=== PATIENT | female | born 1960 | race Caucasian/White ===

== ENCOUNTER 2018-07-11 18:59 | Emergency (ER) | payer OTHER ==
[~2018-07-11] VITALS: Ht 157.5 cm; Wt 95.3 kg
[~2018-07-11 18:59] MED LIST: ALEVE220 M1; CARAFATE1 G; CARDIZEM CD240 MG PO; CARTIA XT120 MG; CELEXA40 MG PO; CLARITIN5 MG; CLONAZEPAM0.125 MG/T; CLORAZEPATE DI7.5 MG PO; COREG CR10 MG; CRESTOR5 MG; DIAZEPAM10 MG; DIAZIDE; DILTIAZEM 24HR120 MG; FIORICET TABLET1 TAB; FLEXERIL10 MG PO; FLUTICASONE PROP1 GM; HALDOL DECA100 MG/M1 IM; INFANTS' G40 MG/0.6; INTESTINEX1 CA1; LAMICTAL25 MG; LASIX20 MG; MIRALAX12 EA; MOBIC15 MG; NEURONTIN800 MG; PEPTO-BISMOL262 M1; PHENERGAN25 MG; PREMARIN0.45 MG; REMERON30 MG PO; RISPERDAL0.25 MG; SEROQUEL200 MG; SOMA250 MG; SYMBICORT 16010.2 GM; SYNTHROID50 MCG; ULTRAM50 MG; VALIUM5 MG/M1; XOPENEX0.63 MG/3; ZANAFLEX4 M1; ZANTAC300 MG PO; [UNRECOGNIZED DRUG - OTHER] PO; [UNRECOGNIZED DRUG - SUPPLY]
== END 2018-07-12 01:52 | disposition home or self-care (01) ==
LOC: ER 18:59
DX: M54.5 Low back pain (principal)

== ENCOUNTER 2018-08-10 22:51 | Emergency (ER) | payer OTHER ==
[~2018-08-10] VITALS: Ht 157.5 cm; Wt 86.2 kg
[2018-08-10] MEDS ORDERED: BACLOFEN20 MG (23:21)
[2018-08-10] MEDS ORDERED: DICLOFENAC POTA50 MG (23:21)
[2018-08-10] MEDS ORDERED: ANTIVERT (23:21)
[2018-08-10] MEDS ORDERED: GRALISE600 MG (23:21)
[2018-08-10] MEDS ORDERED: ATIVAN2 MG (23:22)
[2018-08-10] MEDS ORDERED: [UNRECOGNIZED DRUG - OTHER] (23:22)
[2018-08-10] MEDS ORDERED: RESTORIL30 M1 (23:22)
[2018-08-10] MEDS ORDERED: GABAPENTIN800 MG (23:23)
[2018-08-10] MEDS ORDERED: CARDIZEM CD240 MG (23:23)
[2018-08-11] MEDS ORDERED: ORPHENADRINE C100 MG PO (05:01)
[2018-08-11] MEDS ORDERED: CELECOXIB100 MG PO (05:01)
== END 2018-08-11 05:16 | disposition home or self-care (01) ==
LOC: ER 22:51
DX: M94.0 Chondrocostal junction syndrome [Tietze] (principal); R07.89 Other chest pain

== ENCOUNTER 2018-10-09 19:02 | Emergency (ER) | payer OTHER ==
[~2018-10-09] VITALS: Ht 157.5 cm; Wt 72.6 kg
[~2018-10-09 19:02] MED LIST changes: +ANTIVERT; +ATIVAN2 MG; +BACLOFEN20 MG; +CARDIZEM CD240 MG; +CELECOXIB100 MG PO; +DICLOFENAC POTA50 MG; +GABAPENTIN800 MG; +GRALISE600 MG; +ORPHENADRINE C100 MG PO; +RESTORIL30 M1; +[UNRECOGNIZED DRUG - OTHER]
[2018-10-10] MEDS ORDERED: ULTRACET PO (01:12)
== END 2018-10-10 01:50 | disposition home or self-care (01) ==
LOC: ER 19:02
DX: M54.5 Low back pain (principal); R10.84 Generalized abdominal pain

== ENCOUNTER 2018-12-12 23:46 | Emergency (ER) | payer OTHER ==
[~2018-12-12] VITALS: Ht 157.5 cm; Wt 74.8 kg
[~2018-12-12 23:46] MED LIST changes: +ULTRACET PO
[2018-12-13] MEDS ORDERED: CIPRO500 MG PO (07:08)
== END 2018-12-13 07:42 | disposition home or self-care (01) ==
LOC: ER 23:46
DX: N39.0 Urinary tract infection, site not specified (principal); E86.0 Dehydration

== ENCOUNTER 2019-02-04 23:20 | Emergency (ER) | payer OTHER ==
[~2019-02-04] VITALS: Ht 157.5 cm; Wt 70.3 kg
[~2019-02-04 23:20] MED LIST changes: +CIPRO500 MG PO
[2019-02-05] MEDS ORDERED: CIPRO500 MG PO (06:28)
== END 2019-02-05 06:44 | disposition home or self-care (01) ==
LOC: ER 23:20
DX: R33.8 Other retention of urine (principal)

== ENCOUNTER 2019-02-22 12:51 | Emergency (ER) | payer OTHER ==
[~2019-02-22] VITALS: Ht 157.5 cm; Wt 72.6 kg
== END 2019-02-22 16:58 | disposition home or self-care (01) ==
LOC: ER 12:51
DX: R33.8 Other retention of urine (principal)

== ENCOUNTER 2019-02-26 06:22 | Emergency (ER) | payer OTHER ==
[~2019-02-26] VITALS: Ht 157.5 cm; Wt 72.6 kg
[2019-02-26] MEDS ORDERED: OMEGA-31000 MG (06:34)
== END 2019-02-26 13:21 | disposition home or self-care (01) ==
LOC: ER 06:22
DX: R33.8 Other retention of urine (principal)

== ENCOUNTER 2019-04-09 15:39 | Emergency (ER) | payer OTHER ==
[~2019-04-09] VITALS: Ht 167.6 cm; Wt 77.1 kg
[~2019-04-09 15:39] MED LIST changes: +OMEGA-31000 MG
== END 2019-04-09 19:48 | disposition home or self-care (01) ==
LOC: ER 15:39
DX: N39.0 Urinary tract infection, site not specified (principal); B95.2 Enterococcus as the cause of diseases classified elsewhere

== ENCOUNTER 2019-05-03 03:34 | Emergency (ER) | payer OTHER ==
[~2019-05-03] VITALS: Ht 157.5 cm; Wt 81.6 kg
== END 2019-05-03 09:25 | disposition home or self-care (01) ==
LOC: ER 03:34
DX: S30.0XXA Contusion of lower back and pelvis, initial encounter (principal); W18.09XA Striking against other object with subsequent fall, initial encounter; Y93.89 Activity, other specified; Y92.098 Other place in other non-institutional residence as the place of occurrence of the external cause; Y99.8 Other external cause status

== ENCOUNTER 2019-06-19 15:09 | Emergency (ER) | payer OTHER ==
[~2019-06-19] VITALS: Ht 157.5 cm; Wt 77.1 kg
[2019-06-19] MEDS ORDERED: CLONAZEPAM2 MG (15:47)
== END 2019-06-19 19:46 | disposition home or self-care (01) ==
LOC: ER 15:09
DX: N39.0 Urinary tract infection, site not specified (principal); R10.2 Pelvic and perineal pain

== ENCOUNTER 2019-08-18 09:47 | Outpatient (CLI) | payer OTHER ==
[~2019-08-18 09:47] MED LIST changes: +CLONAZEPAM2 MG
== END 2019-08-18 10:28 | disposition home or self-care (01) ==
LOC: MAMO-SONO 09:47
DX: N60.89 Other benign mammary dysplasias of unspecified breast (principal); N60.11 Diffuse cystic mastopathy of right breast; N60.12 Diffuse cystic mastopathy of left breast

== ENCOUNTER 2019-08-19 20:20 | Emergency (ER) | payer OTHER ==
[~2019-08-19] VITALS: Ht 157.5 cm; Wt 81.6 kg
[2019-08-20] MEDS ORDERED: CIPRO500 MG PO (01:52)
== END 2019-08-20 02:01 | disposition home or self-care (01) ==
LOC: ER 20:20
DX: N39.0 Urinary tract infection, site not specified (principal)

== ENCOUNTER 2019-08-29 18:48 | Emergency (ER) | payer OTHER ==
[~2019-08-29] VITALS: Ht 157.5 cm; Wt 81.6 kg
== END 2019-08-29 21:52 | disposition home or self-care (01) ==
LOC: ER 18:48
DX: N39.0 Urinary tract infection, site not specified (principal)

== ENCOUNTER 2019-09-22 18:56 | Emergency (ER) | payer OTHER ==
[~2019-09-22] VITALS: Ht 157.5 cm; Wt 72.6 kg
[2019-09-22] MEDS ORDERED: DILTIAZEM 24HR240 MG PO (19:07)
[2019-09-22] MEDS ORDERED: DICYCLOMINE HCL20 MG PO (19:08)
[2019-09-22] MEDS ORDERED: PHENAZOPYRIDIN200 MG (19:08)
[2019-09-22] MEDS ORDERED: VASOFLEX TABLE1 EACH PO (19:08)
[2019-09-22] MEDS ORDERED: PANTOPRAZOLE SO20 MG PO (19:08)
[2019-09-22] MEDS ORDERED: CLONAZEPAM2 MG PO (19:09)
[2019-09-22] MEDS ORDERED: RESTORIL30 MG PO (19:09)
[2019-09-23] MEDS ORDERED: MIRALAX510 GM PO (02:41)
[2019-09-23] MEDS ORDERED: KEFLEX500 MG PO ×2 (02:42→02:43)
== END 2019-09-23 03:07 ==
LOC: ER 18:56
DX: R10.2 Pelvic and perineal pain (principal); K59.09 Other constipation; N39.0 Urinary tract infection, site not specified

== ENCOUNTER 2019-09-28 21:49 | Emergency (ER) | payer OTHER ==
[~2019-09-28] VITALS: Ht 157.5 cm; Wt 77.1 kg
[~2019-09-28 21:49] MED LIST changes: +CLONAZEPAM2 MG PO; +DICYCLOMINE HCL20 MG PO; +DILTIAZEM 24HR240 MG PO; +KEFLEX500 MG PO; +MIRALAX510 GM PO; +PANTOPRAZOLE SO20 MG PO; +PHENAZOPYRIDIN200 MG; +RESTORIL30 MG PO; +VASOFLEX TABLE1 EACH PO
== END 2019-09-28 23:00 | disposition home or self-care (01) ==
LOC: ER 21:49
DX: T83.098A Other mechanical complication of other urinary catheter, initial encounter (principal); N39.0 Urinary tract infection, site not specified; R33.8 Other retention of urine

== ENCOUNTER 2019-10-29 18:33 | Emergency (ER) | payer OTHER ==
[~2019-10-29] VITALS: Ht 157.5 cm; Wt 77.1 kg
== END 2019-10-30 02:28 | disposition home or self-care (01) ==
LOC: ER 18:33
DX: K52.9 Noninfective gastroenteritis and colitis, unspecified (principal); E86.0 Dehydration; R30.0 Dysuria

== ENCOUNTER 2019-11-27 07:29 | Emergency (ER) | payer OTHER ==
[~2019-11-27] VITALS: Ht 157.5 cm; Wt 77.1 kg
== END 2019-11-27 12:10 | disposition home or self-care (01) ==
LOC: ER 07:29
DX: N39.0 Urinary tract infection, site not specified (principal); Z03.818 Encounter for observation for suspected exposure to other biological agents ruled out

== ENCOUNTER 2019-12-08 19:36 | Emergency (ER) | payer OTHER ==
[~2019-12-08] VITALS: Ht 157.5 cm; Wt 77.1 kg
[2019-12-08] MEDS ORDERED: XOPENEX HFA15 GM (19:54)
== END 2019-12-08 23:39 | disposition home or self-care (01) ==
LOC: ER 19:36
DX: K59.09 Other constipation (principal); N39.0 Urinary tract infection, site not specified

== ENCOUNTER 2019-12-28 00:22 | Emergency (ER) | payer OTHER ==
[~2019-12-28] VITALS: Ht 157.5 cm; Wt 77.1 kg
[~2019-12-28 00:22] MED LIST changes: +XOPENEX HFA15 GM
== END 2019-12-28 03:30 | disposition home or self-care (01) ==
LOC: ER 00:22
DX: N39.0 Urinary tract infection, site not specified (principal); B96.29 Other Escherichia coli [E. coli] as the cause of diseases classified elsewhere

== ENCOUNTER 2020-01-05 11:54 | Outpatient (CLI) | payer OTHER ==
[~2020-01-05] VITALS: Ht 157.5 cm; Wt 77.1 kg
[2020-01-05] MEDS ORDERED: NEURONTIN800 MG (18:11)
[2020-01-05] MEDS ORDERED: BACLOFEN5 MG (18:12)
[2020-01-05] MEDS ORDERED: PROTONIX40 MG (18:18)
[2020-01-05] MEDS ORDERED: POLY119PG (18:32)
[2020-01-05] MEDS ORDERED: CARAFATE1 GM/10 ML (18:32)
[2020-01-05] MEDS ORDERED: SULFAMETHOXAZO500 GM (18:34)
[2020-01-05] MEDS ORDERED: SUDAFED 24-HOU240 MG (18:35)
[2020-01-05] MEDS ORDERED: CARDIZEM CD240 MG (18:35)
[2020-01-05] MEDS ORDERED: XOPENEX HFA15 GM (18:36)
[2020-01-05] MEDS ORDERED: BUDEO.25 (18:38)
== END 2020-01-05 12:30 | disposition home or self-care (01) ==
LOC: OFIC 805 11:54
PROVIDERS: ATTEND Otolaryngology
DX: K21.9 Gastro-esophageal reflux disease without esophagitis (principal); R07.0 Pain in throat; H61.23 Impacted cerumen, bilateral

== ENCOUNTER 2020-01-05 16:00 | Outpatient (CLI) | payer OTHER ==
[2020-01-05] MEDS ORDERED: NEURONTIN800 MG (18:11)
[2020-01-05] MEDS ORDERED: BACLOFEN5 MG (18:12)
[2020-01-05] MEDS ORDERED: PROTONIX40 MG (18:18)
[2020-01-05] MEDS ORDERED: CARAFATE1 GM/10 ML (18:32)
[2020-01-05] MEDS ORDERED: POLY119PG (18:32)
[2020-01-05] MEDS ORDERED: SULFAMETHOXAZO500 GM (18:34)
[2020-01-05] MEDS ORDERED: SUDAFED 24-HOU240 MG (18:35)
[2020-01-05] MEDS ORDERED: CARDIZEM CD240 MG (18:35)
[2020-01-05] MEDS ORDERED: XOPENEX HFA15 GM (18:36)
[2020-01-05] MEDS ORDERED: BUDEO.25 (18:38)
== END 2020-01-05 16:23 | disposition home or self-care (01) ==
LOC: SONOGRAMA 16:00
PROVIDERS: ATTEND Otolaryngology
DX: R22.1 Localized swelling, mass and lump, neck (principal)

== ENCOUNTER 2020-02-29 10:32 | Emergency (ER) | payer OTHER ==
[~2020-02-29] VITALS: Ht 157.5 cm; Wt 77.1 kg
[~2020-02-29 10:32] MED LIST changes: +BACLOFEN5 MG; +BUDEO.25; +CARAFATE1 GM/10 ML; +POLY119PG; +PROTONIX40 MG; +SUDAFED 24-HOU240 MG; +SULFAMETHOXAZO500 GM
== END 2020-02-29 14:39 | disposition home or self-care (01) ==
LOC: ER 10:32
DX: N39.0 Urinary tract infection, site not specified (principal); B96.29 Other Escherichia coli [E. coli] as the cause of diseases classified elsewhere; B96.1 Klebsiella pneumoniae [K. pneumoniae] as the cause of diseases classified elsewhere; R31.29 Other microscopic hematuria; B96.89 Other specified bacterial agents as the cause of diseases classified elsewhere; T83.511A Infection and inflammatory reaction due to indwelling urethral catheter, initial encounter

== ENCOUNTER 2020-04-08 17:54 | Emergency (ER) | payer OTHER ==
[~2020-04-08] VITALS: Ht 152.4 cm; Wt 77.1 kg
[2020-04-08] MEDS ORDERED: XOPENEX0.63 MG/3 (18:36)
[2020-04-08] MEDS ORDERED: ALEVE220 M1 (18:37)
[2020-04-08] MEDS ORDERED: HORIZANT300 MG (18:37)
[2020-04-08] MEDS ORDERED: TYLENOL325 MG (18:38)
[2020-04-08] MEDS ORDERED: WELLBUTRIN SR150 MG (18:38)
[2020-04-08] MEDS ORDERED: RESTORIL30 MG (18:39)
[2020-04-08] MEDS ORDERED: SEROPHENE50 MG (18:39)
[2020-04-08] MEDS ORDERED: CLONAZEPAM2 M1 (18:39)
== END 2020-04-09 00:59 | disposition left against medical advice (07) ==
LOC: ER 17:54
DX: N39.0 Urinary tract infection, site not specified (principal); Z03.818 Encounter for observation for suspected exposure to other biological agents ruled out

== ENCOUNTER 2020-04-27 01:32 | Emergency (ER) | payer OTHER ==
[~2020-04-27] VITALS: Ht 157.5 cm; Wt 77.1 kg
[~2020-04-27 01:32] MED LIST changes: +CLONAZEPAM2 M1; +HORIZANT300 MG; +RESTORIL30 MG; +SEROPHENE50 MG; +TYLENOL325 MG; +WELLBUTRIN SR150 MG
[2020-04-27] MEDS ORDERED: SEROQUEL50 MG (01:44)
== END 2020-04-27 06:15 | disposition home or self-care (01) ==
LOC: ER 01:32
DX: S50.12XA Contusion of left forearm, initial encounter (principal); S50.11XA Contusion of right forearm, initial encounter; W18.39XA Other fall on same level, initial encounter; Y93.89 Activity, other specified; Y92.89 Other specified places as the place of occurrence of the external cause; Y99.8 Other external cause status; T83.098A Other mechanical complication of other urinary catheter, initial encounter

== ENCOUNTER 2020-05-08 12:59 | Emergency (ER) | payer OTHER ==
[~2020-05-08] VITALS: Ht 157.5 cm; Wt 77.1 kg
[~2020-05-08 12:59] MED LIST changes: +SEROQUEL50 MG
[2020-05-08] MEDS ORDERED: DILTIAZEM 24HR240 MG PO (13:36)
[2020-05-08] MEDS ORDERED: LEVOTHYROXINE25 MC1 PO (13:37)
== END 2020-05-08 16:40 | disposition home or self-care (01) ==
LOC: ER 12:59
DX: M25.551 Pain in right hip (principal); M54.89 Other dorsalgia

== ENCOUNTER → 2020-06-13 | Emergency (ER) | payer OTHER ==
[~2020-06-13] VITALS: Ht 157.5 cm; Wt 77.1 kg
[~2020-06-13] MED LIST changes: +LEVOTHYROXINE25 MC1 PO
== END | disposition home or self-care (01) ==
LOC: ER 23:24
DX: T83.028A Displacement of other urinary catheter, initial encounter (principal); K59.09 Other constipation

== ENCOUNTER 2020-08-19 01:35 | Emergency (ER) | payer OTHER ==
[~2020-08-19] VITALS: Ht 165.1 cm; Wt 90.7 kg
[2020-08-19] MEDS ORDERED: PERCOCET 5-3251 EACH PO (03:04)
== END 2020-08-19 03:28 | disposition home or self-care (01) ==
LOC: ER 01:35
DX: M25.551 Pain in right hip (principal); M54.5 Low back pain

== ENCOUNTER 2020-12-11 17:07 | Emergency (ER) | payer OTHER ==
[~2020-12-11] VITALS: Ht 157.5 cm; Wt 81.6 kg
[~2020-12-11 17:07] MED LIST changes: +PERCOCET 5-3251 EACH PO
[2020-12-11] MEDS ORDERED: LEVSIN/SL0.125 MG SL (23:17)
[2020-12-11] MEDS ORDERED: LEVOFLOXACIN500 MG PO (23:17)
== END 2020-12-11 23:51 | disposition home or self-care (01) ==
LOC: ER 17:07
DX: R50.9 Fever, unspecified (principal); R10.9 Unspecified abdominal pain

== ENCOUNTER 2021-05-03 13:47 | Emergency (ER) | payer OTHER ==
[~2021-05-03] VITALS: Ht 162.6 cm; Wt 113.4 kg
[~2021-05-03 13:47] MED LIST changes: +LEVOFLOXACIN500 MG PO; +LEVSIN/SL0.125 MG SL
[2021-05-03] MEDS ORDERED: MACRODANTIN100 M1 PO (17:32)
== END 2021-05-03 17:42 | disposition home or self-care (01) ==
LOC: ER 13:47
DX: N39.0 Urinary tract infection, site not specified (principal); B96.89 Other specified bacterial agents as the cause of diseases classified elsewhere

== ENCOUNTER 2021-06-03 09:39 | Emergency (ER) | payer OTHER ==
[~2021-06-03] VITALS: Ht 157.5 cm; Wt 104.3 kg
[~2021-06-03 09:39] MED LIST changes: +MACRODANTIN100 M1 PO
[2021-06-03] MEDS ORDERED: CLARITIN5 MG/5 ML (09:53)
[2021-06-03] MEDS ORDERED: XOPENEX0.63 MG/3 (09:54)
[2021-06-03] MEDS ORDERED: ANASTROZOLE1 MG (09:54)
[2021-06-03] MEDS ORDERED: VASOFLEX D1 CA1 EACH (09:55)
[2021-06-03] MEDS ORDERED: RESTORIL (09:56)
== END 2021-06-03 14:26 | disposition home or self-care (01) ==
LOC: ER 09:39
DX: J45.901 Unspecified asthma with (acute) exacerbation (principal)

== ENCOUNTER 2021-06-29 21:20 | Emergency (ER) | payer OTHER ==
[~2021-06-29] VITALS: Ht 167.6 cm; Wt 81.6 kg
[~2021-06-29 21:20] MED LIST changes: +ANASTROZOLE1 MG; +CLARITIN5 MG/5 ML; +RESTORIL; +VASOFLEX D1 CA1 EACH
== END 2021-06-29 23:29 | disposition home or self-care (01) ==
LOC: ER 21:20
DX: R06.02 Shortness of breath (principal); Z91.018 Allergy to other foods

== ENCOUNTER 2023-10-15 15:36 | Inpatient (IN) | payer OTHER ==
[~2023-10-15] VITALS: Ht 180.3 cm; Wt 136.1 kg
[~2023-10-15 15:36] MED LIST changes: +BUPROPION HCL150 M1; +QUETIAPINE FUMA50 MG
--- NOTE | 2023-10-15 15:50 | NUR ---
SE RECIBE PACIENTE EN AMBULANCIA ALERTA Y ORIENTADA X3, LA MISMA INDICA DOLOR ABDOMINAL QUE COMENZO HOY; EL MISMO SIN VOMITOS, NAUSEAS O DIARREAS. SE MONITOREAN VS Y SE UBICA
[2023-10-15] MEDS ORDERED: RINGERS SOLUTION,LACTATED 1,000 ML IV STA (19:07)
[2023-10-15] MEDS ORDERED: DIPHENHYDRAMINE HCL 50 MG/ML VIAL 1ML IM STA (19:08)
[2023-10-15] MEDS ORDERED: HALOPERIDOL LACTATE 5 MG/ML AMPUL IM STA (19:08)
[2023-10-15] MEDS ORDERED: HALOPERIDOL LACTATE 5 MG/ML AMPUL ONE (19:12)
[2023-10-15] MEDS ORDERED: DIPHENHYDRAMINE HCL 50 MG/ML VIAL 1ML ONE (19:12)
[2023-10-15 19:34] LABS: HEMATOCRIT 32.8 % (36.0-45.00); HEMOGLOBIN 10.6 g/dL (12.0-15.00); MEAN CELL VOLUME 76.6 fL (80.00-100.00); MEAN CORPUSCULAR HEMOGLOBIN 24.7 pg (27.00-32.0); MEAN CORPUSCULAR HGB CONC 32.3 g/dl (32.0-36.0); PLATELET COUNT 295 K/uL (150-450); RED BLOOD COUNT 4.29 M/uL (4.00-6.00); RED CELL DISTRIBUTION WIDTH 17.4 % (11.5-14.5)
[2023-10-15 19:38] LABS: ERYTHROCYTE SEDIMENTATION RATE 51 mm/hr
[2023-10-15 19:44] LABS: INR 0.98; PARTIAL THROMBOPLASTIN TIME 26.8 SECONDS (22.0-34.0); PROTHROMBIN TIME 10.3 SECONDS (9.0-11.5)
[2023-10-15 19:49] LABS: BILIRUBIN TOTAL 0.25 mg/dL (0.3-1.2); CALCIUM 8.6 mg/dL (8.5-10.1); CREATININE SERUM 0.32 mg/dL (0.55-1.02); GFR 207.89; GLOBULINA 3.7 G/DL (2.4-3.5); POTASSIUM 4.17 mEq/L (3.5-5.1); TOTAL PROTEIN 6.7 gm/dL (6.4-8.2)
[2023-10-15 19:51] LABS: proBNP 48 pg/mL (0-53.2)
[2023-10-15 19:52] LABS: TROPONIN I hs < 3.0 PG/ML (42.2-82.3)
--- NOTE | 2023-10-15 20:00 | NUR ---
SE ORIENTA PTE SOBRE TX A SEGUIR, EL CUAL REFIERE ENTENDER. SE COLECTAN MUESTRAS Y SE CANALIZA PTE UTILIZANDO MEDIDAS ASEPTICAS. SE ADM. MEDICAMENTOS JOBY ORDEN MEDICA BAJO MEDIDAS ASEPTICAS.
[2023-10-15 20:41] LABS: PH,URINE 5.5 (5.0-8.0); URINE APPEARANCE Clear; URINE BILIRRUBIN Negative (NEGATIVE); URINE BLOOD Small; URINE COLOR Yellow; URINE GLUCOSE Negative (NEGATIVE); URINE LEUKOCYTE Small; URINE NITRATE Positive; URINE PROTEIN Negative (NEGATIVE); URINE UROBILINOGEN 0.2 E.U./dl
[2023-10-15 20:45] LABS: URINE BACTERIA 9719.1 uL (0.0-1933); URINE RBC 169.9 uL (0.0-20.8); URINE WBC 228.7 uL (0.0-23.2)
[2023-10-15] MEDS ORDERED: BARIUM SULFATE 450 ML ORAL.SUSP PO ONE (21:02)
[2023-10-15] MEDS ORDERED: CIPROFLOXACIN IN 5 % DEXTROSE 400 MG/200 ML PIGGYBAG IV STA (22:02)
[2023-10-15] MEDS ORDERED: CIPROFLOXACIN IN 5 % DEXTROSE 400 MG/200 ML PIGGYBAG IV ONE (22:26)
--- NOTE | 2023-10-15 23:01 | NUR ---
SE RECIBE PTE AAOX3 QUIEN AL MOMENOT NO REFIERE DOLOR PTE AL MOMENTO SE OBSERBA EN DESCANSO ABSOLUTO EN CAMA. PTE PEND A REALIZACION DE CT.
--- NOTE | 2023-10-16 07:40 | NUR ---
SE RECIBE PTE ALERTA Y ORIENTADA X3. EN AMINATA BAJA CON BARANDAS ELEVADAS POR SEGURIDAD. CANALIZACION PATENTE, JOSH DE EDEMA Y ERITEMA, RECIBIENDO IV FLUIDS. PEND LECTURA CT
[2023-10-16] MEDS ORDERED: PIPERACILLIN/TAZOBACTAM SODIUM 3.375 GM VIAL IV ONE ×4 (11:45→23:25)
[2023-10-16] MEDS ORDERED: FAMOTIDINE/PF 20 MG/2 ML VIAL IV SCH (12:32)
[2023-10-16] MEDS ORDERED: PIPERACILLIN/TAZOBACTAM SODIUM 3.375 GM in 0.9 % SODIUM CHLORIDE 100 ML IV SCH (12:33)
[2023-10-16] MEDS ORDERED: ONDANSETRON HCL 4 MG in 0.9 % SODIUM CHLORIDE 50 ML IV PRN (12:45)
[2023-10-16] MEDS ORDERED: ACETAMINOPHEN 325 MG TABLET PO PRN (12:45)
[2023-10-16] MEDS ORDERED: 0.9 % SODIUM CHLORIDE 1,000 ML IV SCH (12:45)
[2023-10-16] MEDS ORDERED: MORPHINE SULFATE 2 MG/ML CARTRIDGE IV SCH (13:33)
[2023-10-16 14:19] LABS: HEMATOCRIT 35.6 % (36.0-45.00); HEMOGLOBIN 11.6 g/dL (12.0-15.00); MEAN CELL VOLUME 76.8 fL (80.00-100.00); MEAN CORPUSCULAR HGB CONC 32.5 g/dl (32.0-36.0); PLATELET COUNT 302 K/uL (150-450); RED BLOOD COUNT 4.64 M/uL (4.00-6.00); RED CELL DISTRIBUTION WIDTH 17.5 % (11.5-14.5)
[2023-10-16] MEDS ORDERED: FAMOTIDINE/PF 20 MG/2 ML VIAL ONE (14:23)
[2023-10-16 14:42] LABS: INR 0.98; PROTHROMBIN TIME 10.3 SECONDS (9.0-11.5)
[2023-10-17] MEDS ORDERED: PIPERACILLIN/TAZOBACTAM SODIUM 3.375 GM VIAL IV ONE ×3 (06:19→20:20)
[2023-10-17] MEDS ORDERED: FAMOTIDINE/PF 20 MG/2 ML VIAL ONE ×2 (07:47→17:14)
[2023-10-18] MEDS ORDERED: MEROPENEM 500 MG/VIAL VIAL IV SCH
[2023-10-18] MEDS ORDERED: CHLORHEXIDINE GLUCONATE 120 ML BOTTLE TOP ONE (01:41)
[2023-10-18] MEDS ORDERED: DOCUSATE CALCIUM 240 MG CAPSULE PO SCH (09:00)
[2023-10-18] MEDS ORDERED: LACTULOSE 10 G/15 ML ML PO SCH (12:00)
[2023-10-18] MEDS ORDERED: MINERAL OIL 133 ML ENEMA RECTAL NR (16:00)
[2023-10-19] MEDS ORDERED: IPRATROPIUM BROMIDE 0.5 MG/2.5 ML AMPUL.NEB IH SCH (17:00)
[2023-10-20] MEDS ORDERED: BISACODYL 10 MG/SUPP.RECT SUPP.RECT RECTAL SCH (09:39)
[2023-10-20] MEDS ORDERED: GUAIFENESIN 200 MG/10 ML BLIST.PACK PO SCH (12:00)
[2023-10-20] MEDS ORDERED: IPRATROPIUM BROMIDE 0.5 MG/2.5 ML AMPUL.NEB IH SCH (12:00)
[2023-10-24] MEDS ORDERED: LACTULOSE 20 G/30 ML BLIST.PACK PO SCH (12:00)
[2023-10-25 12:52] LABS: ALBUMIN 2.6 gm/dL (3.4-5.0); BILIRUBIN TOTAL 0.58 mg/dL (0.3-1.2); CALCIUM 8.4 mg/dL (8.5-10.1); CREATININE SERUM 0.25 mg/dL (0.55-1.02); GFR 276.41; GLOBULINA 3.8 G/DL (2.4-3.5); POTASSIUM 3.82 mEq/L (3.5-5.1); TOTAL PROTEIN 6.4 gm/dL (6.4-8.2)
[2023-10-25 13:52] LABS: HEMATOCRIT 40.5 % (36.0-45.00); HEMOGLOBIN 13.3 g/dL (12.0-15.00); MEAN CELL VOLUME 76.9 fL (80.00-100.00); MEAN CORPUSCULAR HEMOGLOBIN 25.2 pg (27.00-32.0); MEAN CORPUSCULAR HGB CONC 32.7 g/dl (32.0-36.0); RED BLOOD COUNT 5.27 M/uL (4.00-6.00); RED CELL DISTRIBUTION WIDTH 18.2 % (11.5-14.5)
[2023-10-25 14:08] LABS: PLATELET COUNT 362 K/uL (150-450)
[2023-10-26] MEDS ORDERED: NYSTATIN TOP SCH (10:26)
[2023-10-26] MEDS ORDERED: ZINC OXIDE TOP SCH (10:26)
[2023-10-26] MEDS ORDERED: SILVER SULFADIAZINE TOP SCH (10:26)
[2023-10-26] MEDS ORDERED: ZINC OXIDE 30 GM,NYSTATIN 30 GM,SILVER SULFADIAZINE 50 GM TOP SCH (13:00)
[2023-10-26 17:23] LABS: URINE APPEARANCE Turbid; URINE BILIRRUBIN Small (NEGATIVE); URINE BLOOD Small; URINE COLOR Dark Yellow; URINE GLUCOSE Negative (NEGATIVE); URINE LEUKOCYTE Large; URINE NITRATE Negative; URINE PROTEIN 30 (NEGATIVE)
[2023-10-26 17:24] LABS: URINE BACTERIA 1249.9 uL (0.0-1933); URINE EPITHELIAL CELLS 111.2 uL (0.0-38.8)
[2023-10-26] MEDS ORDERED: LINEZOLID 600 MG TABLET PO SCH (17:53)
[2023-10-26 18:05] LABS: URINE MUCUS SCANT; URINE WBC > 5548.3 uL (0.0-23.2)
[2023-10-26 18:07] LABS: URINE CRYSTALS FEW /HPF; URINE YEAST MODERATE /hpf
[2023-10-26 21:50] LABS: HEMATOCRIT 38.7 % (36.0-45.00); HEMOGLOBIN 12.6 g/dL (12.0-15.00); MEAN CELL VOLUME 77.4 fL (80.00-100.00); MEAN CORPUSCULAR HEMOGLOBIN 25.2 pg (27.00-32.0); MEAN CORPUSCULAR HGB CONC 32.6 g/dl (32.0-36.0); PLATELET COUNT 380 K/uL (150-450); RED CELL DISTRIBUTION WIDTH 18.1 % (11.5-14.5)
[2023-10-27] MEDS ORDERED: FLUCONAZOLE 200 MG TABLET PO SCH (12:00)
== END 2023-10-31 15:24 | disposition home or self-care (01) | DRG 689 ==
LOC: ER 15:36 → SEC-K 10-16 13:04 → SURH 10-18 02:22 → MEDJ 10-20 21:05
PROVIDERS: General Practice; Internal Medicine Infectious Disease; ADMIT Internal Medicine; ATTEND Internal Medicine
PROC: BW21ZZZ Computerized Tomography (CT Scan) of Abdomen and Pelvis (ICD-10-PCS; principal; 2023-10-15)
PROC: 3E0F7GC Introduction of Other Therapeutic Substance into Respiratory Tract, Via Natural or Artificial Opening (ICD-10-PCS; 2023-10-19)
DX: N39.0 Urinary tract infection, site not specified (principal); L89.154 Pressure ulcer of sacral region, stage 4; B96.20 Unspecified Escherichia coli [E. coli] as the cause of diseases classified elsewhere; K59.09 Other constipation; Z74.01 Bed confinement status

== ENCOUNTER 2024-10-03 01:45 | Emergency (ER) | payer OTHER ==
[~2024-10-03] VITALS: Ht 165.1 cm; Wt 90.7 kg
[2024-10-03] MEDS ORDERED: CARDIZEM LA240 MG (01:50)
[2024-10-03] MEDS ORDERED: CLONAZEPAM1 M1 (01:51)
[2024-10-03] MEDS ORDERED: ATORVASTATIN CA20 MG (01:51)
[2024-10-03] MEDS ORDERED: SEROQUEL XR150 MG (01:51)
[2024-10-03] MEDS ORDERED: 0.9 % SODIUM CHLORIDE 1,000 ML IV STA (06:02)
[2024-10-03] MEDS ORDERED: KETOROLAC TROMETHAMINE 30 MG VIAL IV STA (06:03)
[2024-10-03] MEDS ORDERED: MORPHINE SULFATE 4 MG/ML VIAL IV STA (06:05)
[2024-10-03] MEDS ORDERED: KETOROLAC TROMETHAMINE 30 MG VIAL ONE (06:06)
[2024-10-03] MEDS ORDERED: CIPROFLOXACIN IN 5 % DEXTROSE 400 MG/200 ML PIGGYBAG IV ONE (06:33)
[2024-10-03] MEDS ORDERED: CIPROFLOXACIN IN 5 % DEXTROSE 400 MG/200 ML PIGGYBAG IV STA (06:34)
[2024-10-03 07:24] LABS: BASO % 1.6 % (0.1-1.2); EOS # 0.29 (0.04-0.54); EOS % 4.7 % (0.7-7.0); HEMATOCRIT 35.8 % (34.1-44.9); HEMOGLOBIN 11.1 g/dL (11.2-15.7); LYMPH # 2.12 (1.18-3.74); LYMPH % 34.6 % (19.3-53.1); MEAN CORPUSCULAR HEMOGLOBIN 26.7 pg (25.6-32.2); MONO # 0.37 (0.24-0.82); NEUT # 3.23 (1.56-6.13); NEUT % 52.8 % (34.0-71.1); PLATELET COUNT 291 K/uL (163-369); RED BLOOD COUNT 4.16 M/uL (3.93-5.22)
[2024-10-03 07:51] LABS: ALBUMIN 2.6 gm/dL (3.4-5.0); BILIRUBIN TOTAL 0.15 mg/dL (0.3-1.2); CALCIUM 8.3 mg/dL (8.5-10.1); GFR 303.38; GLOBULINA 3.6 G/DL (2.4-3.5); POTASSIUM 4.31 mEq/L (3.5-5.1); TOTAL PROTEIN 6.2 gm/dL (6.4-8.2)
[2024-10-03 07:53] LABS: ERYTHROCYTE SEDIMENTATION RATE 32 mm/hr (0-30)
[2024-10-03 07:58] LABS: INR 0.94; PARTIAL THROMBOPLASTIN TIME 24.6 SECONDS (22.0-34.0); PROTHROMBIN TIME 10.3 SECONDS (9.0-11.5)
[2024-10-03 08:15] LABS: CREATININE SERUM 0.23 mg/dL (0.55-1.02)
[2024-10-03 09:00] LABS: PH,URINE 7.5 (5.0-8.0); URINE APPEARANCE Clear; URINE BILIRRUBIN Negative (NEGATIVE); URINE BLOOD Trace; URINE COLOR Yellow; URINE GLUCOSE Negative (NEGATIVE); URINE KETONE Negative (NEGATIVE); URINE LEUKOCYTE Moderate; URINE NITRATE Positive; URINE PROTEIN Negative (NEGATIVE); URINE UROBILINOGEN 0.2 E.U./dl
[2024-10-03 09:03] LABS: URINE BACTERIA 4298.2 uL (0.0-1933); URINE WBC 428.7 uL (0.0-23.2)
[2024-10-03 10:13] LABS: URINE CAST 0.88 uL (0.0-1.40); URINE RBC 1.9 uL (0.0-20.8)
== END 2024-10-04 12:54 | disposition home or self-care (01) ==
LOC: ER 01:45
DX: R30.0 Dysuria (principal); M25.551 Pain in right hip; Z91.018 Allergy to other foods
CPT/HCPCS: 36415; 73501; 73502; 73551; 96365; 96366; 99283; J0744; J1885; J2270; J7030

== ENCOUNTER → 2024-10-06 | Emergency (ER) | payer OTHER ==
[~2024-10-06] VITALS: Ht 157.5 cm; Wt 83.9 kg
[~2024-10-06] MED LIST changes: +ATORVASTATIN CA20 MG; +CARDIZEM LA240 MG; +CHLORHEXIDINE GLUCONATE 120 ML BOTTLE TOP ONE; +CLONAZEPAM1 M1; +SEROQUEL XR150 MG; +TRAMADOL HCL 50 MG TABLET PO STA
[2024-10-06 07:00] VITALS: BP 109/72; O2SAT 97
== END | disposition home or self-care (01) ==
LOC: ER 00:24
DX: R30.0 Dysuria (principal); T83.011A Breakdown (mechanical) of indwelling urethral catheter, initial encounter; Y92.89 Other specified places as the place of occurrence of the external cause; Z91.018 Allergy to other foods